=== PATIENT | male | born 1995 | race Caucasian/White ===

== ENCOUNTER 2024-09-15 21:42 | Emergency (ER) | payer OTHER ==
[~2024-09-15] VITALS: Ht 182.9 cm; Wt 140.4 kg
[2024-09-15] MEDS: diphenhydrAMINE 50MG CAP PO ONE (22:39)
[2024-09-16] MEDS: CEPHALEXIN 500 MG CAP PO ONE (00:57)
[2024-09-16] MEDS: BOOSTRIX VACCINE (TETANUS/DIPHTH/ACEL. PERTUSSIS) 0.5ML SYR IM.IMMUN ONE (00:58)
[2024-09-16 01:02] VITALS: BP 134/84; TEMP 97.7; O2SAT 98
[2024-09-16] MEDS ORDERED: CEPH500C PO (01:03)
== END 2024-09-16 06:38 | disposition home or self-care (01) ==
LOC: M ED 21:42
DX: L03.113 Cellulitis of right upper limb (principal); Z79.2 Long term (current) use of antibiotics; Z23 Encounter for immunization